=== PATIENT | male | born 1995 | race Caucasian/White ===

== ENCOUNTER 2020-03-15 16:34 | Emergency (ER) | payer OTHER ==
[~2020-03-15] VITALS: Ht 188 cm; Wt 78.3 kg
[2020-03-15 16:47] VITALS: BP 148/100
== END 2020-03-15 20:22 | disposition home or self-care (01) ==
LOC: ED 20:15
DX: S30.810A Abrasion of lower back and pelvis, initial encounter (principal); S80.212A Abrasion, left knee, initial encounter; M25.512 Pain in left shoulder; V23.4XXA Motorcycle driver injured in collision with car, pick-up truck or van in traffic accident, initial encounter; Y93.89 Activity, other specified; Y92.410 Unspecified street and highway as the place of occurrence of the external cause; Y99.8 Other external cause status
CPT/HCPCS: 99284